=== PATIENT | male | born 1960 | race Caucasian/White ===

== ENCOUNTER 2017-07-13 19:30 | Inpatient (IN) | payer OTHER ==
[~2017-07-13] VITALS: Ht 172.7 cm; Wt 88.0 kg
[~2017-07-13 19:30] MED LIST: LEVAQUIN750 MG PO; PERCOCET 325 MG1 TA2 PO
--- NOTE | 2017-07-13 19:56 | ED NEURO DEFICIT/STROKE ---
History of Present Illness General Chief Complaint: General Adult Stated Complaint: PT THINKS HE HAVING A STROKE Source: patient Exam Limitations: no limitations Vital Signs & Intake/Output Vital Signs & Intake/Output Vital Signs Date Time Temp Pulse Resp B/P B/P Pulse O2 O2 Flow FiO2 Mean Ox Delivery Rate 07/13 2033 Room Air 07/13 1940 96.4 70 22 168/93 95 Room Air Allergies Coded Allergies: NO KNOWN ALLERGIES (12/13/14) Reconcile Medications No Known Home Medications Triage Note: PER PT TODAY AT ABOUT 3PM DIFFICULTY SPEAKING PER CO WORKERS, AND FELT WOOZY TONIGHT AT DINNER SAID PT WAS DROPPING FOOD OUT OF MOUTH, ALERT MENTATING WELL SPEECH ?THICK EQUAL HAND GRAPS Triage Nurses Notes Reviewed? yes Onset: Abrupt Duration: hour(s): Timing: recent history Severity: mild New Weakness: right facial Impaired Ability: unable to speak, unable to swallow Baseline: alert, oriented x 3 Associated Symptoms: confusion HPI: 57 yo gentleman in prior good health presents with right facial droop, dysarthria, problems swallowing that began at approximately 2:30pm and lasted 30 or so minutes and self resolved. And then against approximately 5:30pm, had brief episode while eating dinner. "My said to me, 'you don't look so good.... there is food coming out of the right side of your mouth.'" No chest pain, shortness of breath, chills. He is now feeling well. Past History Travel History Traveled to [place] past 21 day No Medical History Any Pertinent Medical History? see below for history Neurological: NONE EENT: NONE Cardiovascular: hypertension Respiratory: COPD Gastrointestinal: GERD Psychiatric: NONE Endocrine: NONE Surgical History Surgical History: none Psychosocial History What is your primary language Turkmen Tobacco Use: Never used Family History Hx Contributory? No Review of Systems Review of Systems Constitutional: Reports: no symptoms. EENTM: Reports: no symptoms. Respiratory: Reports: no symptoms. Cardiovascular: Reports: no symptoms. GI: Reports: no symptoms. Genitourinary: Reports: no symptoms. Musculoskeletal: Reports: no symptoms. Skin: Reports: no symptoms. Neurological/Psychological: Reports: no symptoms. Hematologic/Endocrine: Reports: no symptoms. Immunologic/Allergic: Reports: no symptoms. All Other Systems: Reviewed and Negative Physical Exam Physical Exam General Appearance: well developed/nourished, no apparent distress Head: atraumatic, normal appearance Eyes: Bilateral: normal appearance, PERRL, EOMI. Ears, Nose, Throat: normal ENT inspection, moist mucous membrane Neck: normal inspection, supple, full range of motion Respiratory: normal breath sounds, chest non-tender, no respiratory distress, quiet respiration, lungs clear Cardiovascular: regular rate/rhythm Gastrointestinal: normal bowel sounds, soft, non-tender, no organomegaly Back: normal inspection, normal range of motion Extremities: normal range of motion Psychiatric: awake, alert, oriented x 3 Cranial Nerves: normal hearing, normal speech, PERRL Coordination/Gait: normal finger to nose Motor/Sensory: no motor/sensory deficits Reflexes: 1+: bicep (R), bicep (L), knee (R), knee (L). Core Measures CVA/TIA Diagnosis: No Sepsis Present: No Sepsis Focused Exam Completed? No Progress Differential Diagnosis: Costa's Palsy, intracranial Hem., intracranial mass/tumor , migraine AREVALO, stroke Plan of Care: Orders Procedure Date/time Status Nothing by Mouth 07/14 B Active Saline Lock 07/[address] in observation 07/13 2137 Active Misc Message 07/13 2137 Active ED Holding Orders 07/13 2137 Active Vital Signs 07/13 2137 Active Code Status 07/13 2137 Active Add-on Test (ER Only) 07/13 2036 Active ETHANOL 07/13 1948 Complete TROPONIN LEVEL 07/13 1942 Complete COMPREHENSIVE METABOLIC PANEL 07/13 1942 Complete CBC WITHOUT DIFFERENTIAL 07/13 1942 Complete EKG 07/13 1931 Active Laboratory Tests 07/13/171948: Anion Gap 13, Estimated GFR > 60, BUN/Creatinine Ratio 16.7, Glucose 94, Calcium 9.6, Total Bilirubin 0.6, AST 32, ALT 38, Alkaline Phosphatase 60, Troponin I < 0.01, Total Protein 7.0, Albumin 4.4, Globulin 2.6, Albumin/Globulin Ratio 1.7, Serum Alcohol 116.0 07/13/171942: CBC w Diff NO MAN DIFF REQ, RBC 5.06, MCV 93.2, MCH 31.0, MCHC 33.3, RDW 13.3, MPV 7.8, Gran % 60.5, Lymphocytes % 26.1, Monocytes % 11.3 H, Eosinophils % 1.7 , Basophils % 0.4, Absolute Granulocytes 4.9, Absolute Lymphocytes 2.1, Absolute Monocytes 0.9 H, Absolute Eosinophils 0.1, Absolute Basophils 0 Diagnostic Imaging: Viewed by Me: CT Scan. Discussed w/RAD: CT Scan. Radiology Impression: PATIENT: ARMANDO DUDLEY PRESENT AGE: 57 PATIENT ACCOUNT NO: [id number] : 62 LOCATION: [facility] ORDERING PHYSICIAN: Ahsan Lake MD SERVICE DATE: 07/13/17 EXAM TYPE: CAT - CT HEAD WO IV CONTRAST EXAMINATION: CT HEAD WITHOUT CONTRAST CLINICAL INFORMATION: Right facial droop. COMPARISON: None TECHNIQUE: Contiguous axial imaging was performed from the skull base to vertex without intravenous administration of contrast. DLP: 624.91 mGy-cm FINDINGS: There is no evidence of acute intracranial hemorrhage or territorial infarction. No abnormal mass effect or midline shift is seen. Downing to white matter differentiation is well preserved. No extra-axial fluid collections are identified. The ventricles are normal in size. There is no abnormal attenuation within the brain parenchyma. The osseous structures and soft tissues are normal. The mastoid air cells and visualized portions of the paranasal sinuses are well aerated. IMPRESSION: No acute intracranial pathology. DICTATED BY: Aaron Melendez MD DATE/TIME DICTATED:2009 TICKER MAINTAINER:CANDIS DATE/TIME TRANSCRIBED:07/13/172009 CONFIDENTIAL, DO NOT COPY WITHOUT APPROPRIATE AUTHORIZATION. <Electronically signed in Other Vendor System> SIGNED BY: Aaron Melendez MD 07/13/172013 CXR Impression: no acute abnormality, no infiltrates, normal size heart, normal mediastinum Initial ED EKG: nsr, no acute changes. Departure Departure Disposition: STILL A PATIENT Condition: Stable Clinical Impression Primary Impression: TIA (transient ischemic attack) Referrals: Raffy Rice MD (PCP/Family) Departure Forms: Customer Survey General Discharge Information Prescriptions: Current Visit Scripts No Known Home Medications Comments 07/13/17, 21:10.... discussed with dr. lambert... pt to be placed in obs for likely tia. Observation Note Spoke With: Raffy Rice MD Place Patient In: Non-ED OBS Care Area Rationale for Observation: My rational for observation is as follows . pt with right facial droop x 2 today... c/w tia.. aspirin given... pt merits observation, neuro eval in AM. Critical Care Note Critical Care Note Critical Care Time: 30-74 min
--- NOTE | 2017-07-13 20:14 | CT SCAN REPORT ---
EXAMINATION: CT HEAD WITHOUT CONTRAST CLINICAL INFORMATION: Right facial droop. COMPARISON: None TECHNIQUE: Contiguous axial imaging was performed from the skull base to vertex without intravenous administration of contrast. DLP: 624.91 mGy-cm FINDINGS: There is no evidence of acute intracranial hemorrhage or territorial infarction. No abnormal mass effect or midline shift is seen. Downing to white matter differentiation is well preserved. No extra-axial fluid collections are identified. The ventricles are normal in size. There is no abnormal attenuation within the brain parenchyma. The osseous structures and soft tissues are normal. The mastoid air cells and visualized portions of the paranasal sinuses are well aerated. IMPRESSION: No acute intracranial pathology.
[2017-07-13 20:25] LABS: ABSOLUTE BASOPHIL COUNT 0 /CUMM (0.0-0.2); ABSOLUTE EOSINOPHIL COUNT 0.1 /CUMM (0.0-0.7); ABSOLUTE GRANULOCYTE CT 4.9 /CUMM (1.4-6.5); ABSOLUTE LYMPH COUNT 2.1 /CUMM (1.2-3.4); ABSOLUTE MONOCYTE COUNT 0.9 /CUMM (0.10-0.60); BASOPHIL % 0.4 % (0.0-2.0); EOSINOPHIL % 1.7 % (0-5); GRANULOCYTE % 60.5 % (42.2-75.2); HEMATOCRIT 47.2 % (42-52); MEAN CORPUSCULAR HGB CONC 33.3 G/DL (33.0-37.0); MEAN CORPUSCULAR VOLUME 93.2 FL (80.0-94.0); MEAN PLATELET VOLUME 7.8 FL (7.4-10.4); PLATELET COUNT 269 /CUMM (130-400); RBC DISTRIBUTION WIDTH 13.3 % (11.5-14.5); RED BLOOD CELL CT 5.06 /CUMM (4.70-6.10); WHITE BLOOD CELL COUNT 8.1 /CUMM (4.8-10.8)
--- NOTE | 2017-07-13 20:37 | RADIOLOGY REPORT ---
EXAMINATION: XR PORTABLE CHEST CLINICAL INFORMATION: CVA. COMPARISON: Chest x-ray 06/11/2015 TECHNIQUE: Portable frontal view of the chest was obtained. 8:02 PM FINDINGS: No significant abnormality is noted involving the heart, lungs, mediastinum, bony thorax or soft tissues. IMPRESSION: Unremarkable examination.
--- NOTE | 2017-07-13 22:15 | History & Physical ---
John Briseno MD 07/13/17 8744: General Information and HPI MD Statement: I have seen and personally examined ARMANDO DUDLEY and documented this H&P. The patient is a 57 year old M who presented with a patient stated chief complaint of [R sided facial droop]. Source of Information: patient Exam Limitations: no limitations History of Present Illness: Patient is a 57-year-old male with a [id number] smoking history who presented to the ED complaining of slurred speech and right-sided facial droop. Patient states that approximately 1430 on the day of admission he experienced slurred speech, lightheadedness and right hand weakness while he was working. He also noted some transient tingling of his face bilaterally but no numbness. His coworker said that he cannot understand him the patient did not realize that he was having difficulty speaking. At this time he also noted lightheadedness, but did not loss of consciousness. After this episode he felt fatigued when he came home from work. While eating dinner later in the evening he noted food falling out of his mouth and a friend of his noted facial asymmetry while he was smiling. It was at this point the he decided to come to the ED. He denied any chest pain, shortness of breath, palpitations, visual changes, numbness or tingling of his extremities. During the examination he reports that his symptoms had resolved and he feels back to baseline. Allergies/Medications Allergies: Coded Allergies: NO KNOWN ALLERGIES (12/13/14) Home Med list Aspirin (Aspirin*) 81 MG TAB.CHEW 1 TAB PO DAILY STROKE Atorvastatin Calcium (Lipitor) 40 MG TABLET 1 TAB PO DAILY STROKE Nicotine (Nicotine Patch) 21 MG/24 HOUR PATCH.TD24 1 PAT TOP DAILY smoking cessation Nicotine (Nicotine Patch) 14 MG/24 HOUR PATCH.TD24 1 PAT TOP DAILY smoking cessation Start taking these daily after finishing the 21 MG patch Nicotine (Nicotine Patch) 7 MG/24 HOUR PATCH.TD24 1 PAT TD DAILY smoking cessation Past History Travel History Traveled to [place] past 21 day No Medical History Neurological: NONE EENT: NONE Gastrointestinal: GERD Psychiatric: NONE Endocrine: NONE Surgical History Surgical History: none Past Family/Social History Family History Relations & Conditions if any MOTHER FH: CVA (cerebrovascular accident) FH: HTN (hypertension) Psychosocial History Where do you live? Home Who Do You Live With? fiance Primary Language: Yakut Smoking Status: Current Everyday Smoker ETOH Use: heavy use (daily 1-2 drinks) Illicit Drug Use: denies illicit drug use Functional Ability ADLs Independent: dressing, eating, toileting, bathing. Ambulation: independent IADLs Independent: shopping, housework, finances, food prep, telephone, transportation , medication admin. Review of Systems Review of Systems Constitutional: Denies: chills, diaphoresis, fever, malaise, weakness. EENTM: Denies: blurred vision, double vision, visual changes, hearing changes. Cardiovascular: Reports: chest pain (reports occasional chest pain). Denies: edema, orthopena. Respiratory: Denies: cough, hemoptysis, orthopnea, short of breath. GI: Denies: abdominal pain, bloating, constipation, diarrhea, nausea, vomiting. Genitourinary: Denies: dysuria, frequency, hematuria. Skin: Denies: rash. Neurological/Psychological: Reports: tingling (face bilaterally), weakness (R hand). Denies: confusion, headache, numbness. Exam & Diagnostic Data Last 24 Hrs of Vital Signs/I&O Vital Signs Date Time Temp Pulse Resp B/P B/P Pulse O2 O2 Flow FiO2 Mean Ox Delivery Rate 07/13 2321 98.8 79 20 150/90 94 Room Air 07/13 2320 Room Air 07/13 2236 98.4 75 16 136/80 95 Room Air 07/13 2033 Room Air 07/13 194 96.4 70 22 168/93 95 Room Air Physical Exam General Appearance Alert, Oriented X3, Cooperative, No Acute Distress Skin Temp/Moisture Exam: Warm/Dry Sepsis Skin Exam (color): Normal for Ethnicity HEENT Atraumatic, PERRLA, EOMI, Mucous Membr. moist/pink Neck Supple, No JVD, +2 Carotid Pulse wo Bruit Cardiovascular Regular Rate, Normal S1, Normal S2 Lungs diminished breath sounds Abdomen Normal Bowel Sounds, Soft, No Tenderness Neurological Normal Speech (pt states speech is at baselin), Strength at 5/5 X4 Ext, Normal Tone, Sensation Intact, Cranial Nerves 3-12 NL, no dysmetria on exam , able to perfrom rapid alternating movements and heel-carlin test without difficulty Extremities No Clubbing, No Cyanosis, No Edema Vascular Normal Pulses, Pulses Symmetrical Last 24 Hrs of Labs/Kendell: Laboratory Tests 07/13/171948: Anion Gap 13, Estimated GFR > 60, BUN/Creatinine Ratio 16.7, Glucose 94, Calcium 9.6, Total Bilirubin 0.6, AST 32, ALT 38, Alkaline Phosphatase 60, Troponin I < 0.01, Total Protein 7.0, Albumin 4.4, Globulin 2.6, Albumin/Globulin Ratio 1.7, Serum Alcohol 116.0 07/13/171942: CBC w Diff NO MAN DIFF REQ, RBC 5.06, MCV 93.2, MCH 31.0, MCHC 33.3, RDW 13.3, MPV 7.8, Gran % 60.5, Lymphocytes % 26.1, Monocytes % 11.3 H, Eosinophils % 1.7 , Basophils % 0.4, Absolute Granulocytes 4.9, Absolute Lymphocytes 2.1, Absolute Monocytes 0.9 H, Absolute Eosinophils 0.1, Absolute Basophils 0 Diagnostic Data EKG Results NSR, HR 72, QTc 409 CXR Results no acute pathology Other Results Head CT w/o contrast No acute intracranial pathology. Assessment/Plan Assessment: Patient is a 57-year-old smoker with no significant past medical history who presented after an episode of dysarthria, right hand weakness, and lightheadedness with resolution of a subsequent episode of right-sided facial droop. His last known well time was 1430 day of admission. His symptoms have currently resolved neurological exam showed no focal neurological deficits. CT head without contrast showed no focal neurological deficits; no carotid bruits were heard on exam. NIH stroke scale 0, patient passed bedside swallow eval. Problem list #TIA vs CVA; will need MRI head in the a.m. to assess for signs of ischemia #Nicotine dependence Plan -Place in observation on telemetry floor -Continuous telemetry monitoring -MRI head in a.m. -Neurology consult was placed with on-call neurologist Dr. Genao who was also called from the ED -Begin aspirin and statin -Carotid Doppler ultrasound -Nothing by mouth pending formal swallow eval, of note patient passed bedside swallow eval on exam -DVT prophylaxis: Lovenox, ALPS -Status: Full code As Ranked By This Provider Problem List: 1. TIA (transient ischemic attack) Core Measures/Misc (02/04) Acute Coronary Syndrome ACS Diagnosis: No Congestive Heart Failure Congestive Heart Failure Diagnosis No Cerebrovascular Accident CVA/TIA Diagnosis: Yes NIH Stroke Scale: Total 0 VTE (View Protocol) VTE Risk Factors Smoker No Mechanical VTE Prophylaxis d/t N/A MechProphylax Ordered No VTE Pharm Prophylaxis d/t NA PharmProphylax ordered Sepsis (View protocol) Sepsis Present: No Dandre Yeager 07/14/17 0042: Resident Review Statement Resident Statement: examined this patient, discussed with product management intern, agreed with product management intern, reviewed images Other Findings: is a 57 yo man with no significant medical history presented to ED with fascial numbness, slurred speech and drooling while eating his lunch today, and weakness on the right arm, he also report dizziness with no LOC. He denies chest pain, palpitation, headache, no vision changes, never has similar symptoms before. He denies any other medical history and no medications at home. He is under observation at telemetry floor, will order MRI head, B/L carotid US, neurology consult, he received high dose ASA at ED, will continue with ASA 81 mg daily, NIHA scale, statin, PT/OT, official swallow eval at am, NPO. Full code DVT ppx SC Lovenox
[2017-07-13 23:22] VITALS: BP 150/90
[2017-07-14 06:49] VITALS: BP 150/100
[2017-07-14 08:07] VITALS: BP 128/62
--- NOTE | 2017-07-14 08:22 | Event Note ---
Event Note Event Note: Patient passed bedside swallow evaluation. There was no coughing and choking episode and lungs were clear. We will start him on heart healthy diet.
[2017-07-14 08:24] LABS: ABSOLUTE BASOPHIL COUNT 0 /CUMM (0.0-0.2); ABSOLUTE EOSINOPHIL COUNT 0.2 /CUMM (0.0-0.7); ABSOLUTE GRANULOCYTE CT 3.6 /CUMM (1.4-6.5); ABSOLUTE LYMPH COUNT 1.5 /CUMM (1.2-3.4); ABSOLUTE MONOCYTE COUNT 0.7 /CUMM (0.10-0.60); BASOPHIL % 0.5 % (0.0-2.0); EOSINOPHIL % 3.2 % (0-5); GRANULOCYTE % 60.1 % (42.2-75.2); HEMATOCRIT 44.3 % (42-52); MEAN CORPUSCULAR HGB 31.1 PG (27.0-31.0); MEAN CORPUSCULAR HGB CONC 33.6 G/DL (33.0-37.0); MEAN CORPUSCULAR VOLUME 92.6 FL (80.0-94.0); MEAN PLATELET VOLUME 8.1 FL (7.4-10.4); PLATELET COUNT 213 /CUMM (130-400); RBC DISTRIBUTION WIDTH 13.7 % (11.5-14.5); RED BLOOD CELL CT 4.78 /CUMM (4.70-6.10); WHITE BLOOD CELL COUNT 6.1 /CUMM (4.8-10.8)
[2017-07-14 14:16] VITALS: BP 160/100
[2017-07-14 14:24] VITALS: BP 144/80
--- NOTE | 2017-07-14 15:47 | MRI REPORT ---
EXAMINATION: MR BRAIN WITHOUT CONTRAST CLINICAL INFORMATION: Facial droop. Right arm weakness. COMPARISON: Head CT 07/13/2017. TECHNIQUE: Multiplanar, multisequence imaging of the brain was performed without intravenous contrast. \H\ \N\FINDINGS: There is an acute infarct within the right middle cerebral artery territory predominantly involving involving the middle frontal gyri and insula. There is cytotoxic edema and mild effacement of the involved sulci but no regional mass effect, midline shift, or hemorrhage. An additional punctate acute infarct is present within the right paramedian cerebellum within the DIETARY DIRECTOR territory (DWI image 61/72). There are moderate foci of T2 hyperintensity in the bilateral cerebral white matter, which are nonspecific but likely reflect underlying small vessel disease. The ventricles are normal in size and configuration without evidence of hydrocephalus. There is no intracranial mass lesion. There is no extra-axial collection. The major arterial flow voids are preserved at the skull base. There is mild paranasal sinus mucosal thickening. IMPRESSION: 1. Small acute infarct within the MCA territory involving the middle frontal gyri and insula. No significant regional mass effect or hemorrhage. Punctate acute infarct within the right paramedian occipital lobe within the DIETARY DIRECTOR territory. In the setting of acute infarcts in varying vascular territories and embolic etiology is favored. Alternatively and anterior circulation embolus could explain both infarcts in the presence of a -type DIETARY DIRECTOR. 2. Moderate small vessel ischemic changes. This critical result was discussed with Dr. Beaulieu on 07/14/2017 3:42 PM, and it was ascertained that the content and urgency of the report was understood at the time of direct communication.
--- NOTE | 2017-07-14 15:48 | ULTRASOUND REPORT ---
EXAMINATION: DUPLEX BILATERAL CAROTID ULTRASOUND CLINICAL INFORMATION: There is a 57-year-old male with history of TIA, aphasia, smoking, syncope, carotid artery disease. COMPARISON: None. TECHNIQUE: Real-time ultrasound and Doppler techniques (integrating B-mode 2D vascular images, Doppler spectral analysis and color flow Doppler imaging) were utilized to interrogate the extracranial carotid and vertebral arteries bilaterally. The degree of stenosis determined by criteria similar to NASCET. FINDINGS: Right side: 1. Minimal amount of heterogeneous plaque is seen in the ECA/ICA region. 2. The common carotid artery velocity is 45 cm/s. 3. The internal carotid artery velocities are 79 cm/s systolic and 26 cm/s diastolic. 4. The external carotid artery velocity is 154 cm/s. There is a hemodynamically significant stenosis within the external carotid artery. Left side: 1. Minimal amount of heterogeneous plaque is seen in the ECA/ICA region. 2. The common carotid artery velocity is 62 cm/s. 3. The internal carotid artery velocities are 64 cm/s systolic and 22 cm/s diastolic. 4. The external carotid artery velocity is 98 cm/s. There is no hemodynamically significant stenosis within the external carotid artery. ADDITIONAL FINDINGS: 1. The vertebral arteries show antegrade flow. IMPRESSION: 1. RIGHT: Minimal, nonhemodynamically significant stenosis of the proximal right internal carotid artery corresponding to a 0-49% stenosis by velocity criteria. 2. LEFT: Minimal, nonhemodynamically significant stenosis of the proximal left internal carotid artery corresponding to a 0-49% stenosis by velocity criteria.
--- NOTE | 2017-07-14 17:14 | Admission Certification ---
Admission Certification Certification Statement - As attending physician, I certify that at the time of - admission, based on clinical presentation, severity of - symptoms, need for further diagnostic testing and - therapeutic interventions, and risk of adverse outcomes - without in-hospital treatment, in my clinical assessment, - this patient requires an acute hospital stay for a minimum - of two nights or longer. I have also considered psychsocial - factors such as support system, advanced age, financial - issues, cognitive issues, and failed out-patient treatments, - past re-admission history, safety of patient, and lack of - compliance as applicable. Specific rationale supporting this admission is: Facial droop. Expressive aphasia resolved. Abnormal MRI of the head
--- NOTE | 2017-07-14 17:21 | PN- Att Addend ---
Attending Addendum Attending Brief Note 57-year-old white male was in his usual state of health till approximately 3 PM on Sunday when his coworkers noticed some difficulty expressing himself some right facial droop lasted maybe up to 30 minutes again later on around dinnertime noted that he wasn't acting right. Had the same episode was dropping some food. To the emergency room, was evaluated had a CAT scan of the head which showed no acute abnormalities was given aspirin and a neurology consult was requested. Patient was kept originally on observation. This morning she has no symptoms, blood pressures little bit elevated at times a carotid Doppler that showed 0-49% stenosis on both sides which is not significant. Later on he had a MRI of the head that showed moderate acute infarct within the MCA territory, middle frontal GYRI and insular. A punctate acute infarct within right paramedian occipital lobe within the BOOKMOBILE CLERK territory embolic etiology is favored .. Again neurology will be consulted the patient needs anticoagulation and or statins added to his treatment. His chest x-ray was negative Patient is not aware of any arrhythmias and on the monitor to have been any. Current Medications Sig/Lien Start time Last Medication Dose Route Stop Time Status Admin Acetaminophen 650 MG Q6P PRN 07/13 2345 AC PO Aspirin 81 MG DAILY 07/14 1000 AC 07/14 PO 0829 Aspirin 0 .STK-MED ONE 07/13 2048 DC PO Aspirin 325 MG ONCE ONE 07/13 2044 DC 07/13 PO 07/13 Atorvastatin Calcium 40 MG 1700 07/14 1700 AC 07/14 PO 1633 Enoxaparin Sodium 40 MG DAILY 07/14 1000 AC 07/14 SC 0831 Nicotine 21 MG DAILY 07/14 1500 AC 07/14 TOP 1633 Laboratory Tests 07/14/17 0640: Anion Gap 10, Estimated GFR > 60, BUN/Creatinine Ratio 18.8, Triglycerides 80, Cholesterol 231 H, LDL Cholesterol, Calc 151 H, HDL Cholesterol 64 H, Cholesterol/HDL Ratio 4, CBC w Diff NO MAN DIFF REQ, RBC 4.78, MCV 92.6, MCH 31.1 H, MCHC 33.6, RDW 13.7, MPV 8.1, Gran % 60.1, Lymphocytes % 24.5, Monocytes % 11.7 H, Eosinophils % 3.2, Basophils % 0.5, Absolute Granulocytes 3.6, Absolute Lymphocytes 1.5, Absolute Monocytes 0.7 H, Absolute Eosinophils 0.2, Absolute Basophils 0 07/13/171948: Anion Gap 13, Estimated GFR > 60, BUN/Creatinine Ratio 16.7, Glucose 94, Calcium 9.6, Total Bilirubin 0.6, AST 32, ALT 38, Alkaline Phosphatase 60, Troponin I < 0.01, Total Protein 7.0, Albumin 4.4, Globulin 2.6, Albumin/Globulin Ratio 1.7, Serum Alcohol 116.0 07/13/171942: CBC w Diff NO MAN DIFF REQ, RBC 5.06, MCV 93.2, MCH 31.0, MCHC 33.3, RDW 13.3, MPV 7.8, Gran % 60.5, Lymphocytes % 26.1, Monocytes % 11.3 H, Eosinophils % 1.7 , Basophils % 0.4, Absolute Granulocytes 4.9, Absolute Lymphocytes 2.1, Absolute Monocytes 0.9 H, Absolute Eosinophils 0.1, Absolute Basophils 0 Vital Signs Date Time Temp Pulse Resp B/P B/P Pulse O2 O2 Flow FiO2 Mean Ox Delivery Rate 07/14 1424 144/80 07/14 1416 98.4 60 20 160/100 96 Room Air 07/14 0807 128/62 07/14 0649 98.8 68 20 150/100 95 Room Air 07/13 2321 98.8 79 20 150/90 94 Room Air 07/13 2320 Room Air 07/13 2236 98.4 75 16 136/80 95 Room Air 07/13 2033 Room Air 07/13 1940 96.4 70 22 168/93 95 Room Air
[2017-07-14 21:47] VITALS: BP 142/86
[2017-07-15 06:43] VITALS: BP 160/94
--- NOTE | 2017-07-15 08:35 | PN- Housestaff ---
Subjective Follow-up For: Right-sided facial droop Complaints: no complaints Tele-Events Since Last Visit: Sinus bradycardia and sinus rhythm. Heart rate 57 to61 bpm. No events. Subjective: Patient has no complaints this morning. He states that he has no facial droop or slurring of speech and this is also confirmed by his . He denies headaches, blurring of vision, abnormal sensation, weakness or numbness of his body or any extremity. He denies chest pain, palpitations, shortness of breath. He denies nausea vomiting or abdominal pain. He denies dysuria or hematuria. Review of Systems Constitutional: Reports: see HPI. Objective Last 24 Hrs of Vital Signs/I&O Vital Signs Date Time Temp Pulse Resp B/P B/P Pulse O2 O2 Flow FiO2 Mean Ox Delivery Rate 07/15 0643 98.1 78 12 160/94 95 Room Air 07/14 2147 98.6 58 18 142/86 95 07/14 1424 144/80 07/14 1416 98.4 60 20 160/100 96 Room Air Intake & Output 07/15 1600 07/15 0800 07/15 0000 Intake Total 350 550 Output Total Balance 350 550 Intake, Oral 350 550 Patient 194 lb Weight Weight Reported by Patient Measurement Method Physical Exam General Appearance: Alert, Oriented X3, Cooperative, No Acute Distress Skin: No Rashes Skin Temp/Moisture Exam: Warm/Dry Sepsis Skin Exam (color): Normal for Ethnicity HEENT: Atraumatic, PERRLA, EOMI, Mucous Membr. moist/pink Neck: Supple, No JVD, No thryomegaly Lymphatic: Cervical nl Cardiovascular: Regular Rate, Normal S1, Normal S2, No Murmurs Lungs: Clear to Auscultation, Normal Air Movement Abdomen: Normal Bowel Sounds, Soft, No Tenderness, No Hepatospenomegaly, No Masses Neurological: Normal Speech, Strength at 5/5 X4 Ext, Normal Tone, Cranial Nerves 3-12 NL Extremities: No Clubbing, No Cyanosis, No Edema, Normal Pulses, No Tenderness/ Swelling Vascular: Normal Pulses, Pulses Symmetrical Current Medications: Current Medications Sig/Lien Start time Last Medication Dose Route Stop Time Status Admin Acetaminophen 650 MG Q6P PRN 07/13 2345 AC PO Aspirin 81 MG DAILY 07/14 1000 AC 07/15 PO 0948 Atorvastatin Calcium 40 MG 1700 07/14 1700 AC 07/14 PO 1633 Enoxaparin Sodium 40 MG DAILY 07/14 1000 AC 07/15 CO 0948 Nicotine 21 MG DAILY 07/14 1500 AC 07/15 [facility] 0948 Assessment/Plan Assessment: Patient is a 57-year-old smoker with no significant past medical history who presented after an episode of dysarthria, right hand weakness, and lightheadedness with resolution of a subsequent episode of right-sided facial droop. His last known well time was 1430 day of admission. His symptoms have currently resolved neurological exam showed no focal neurological deficits. CT head without contrast showed no focal neurological deficits; no carotid bruits were heard on exam. NIH stroke scale 0, patient passed bedside swallow eval. Problem list 1. Right MCA CVA 2. Hypertension 3. Smoking/Nicotine dependence Plan 1. Right MCA CVA * Continuous telemetry monitoring * Awaiting Neurology and cardiology consultation * Continue aspirin and statin * Allow permissive hypertension * Follow-up echocardiogram 2. Hypertension * Allow permissive hypertension for now * Blood pressure is 160/94 mmHg 3. Smoking/Nicotine dependence * Patient was counseled about smoking cessation agreed to quit * Continue nicotine patch and prescribe nicotine patch on discharge -DVT prophylaxis: Lovenox, ALPS -Status: Full code Problem List: 1. CVA (cerebral vascular accident) Pain Ratin Pain Location: None Pain Goal: Remain pain free Pain Plan: Tylenol when necessary Tomorrow's Labs & Rationales: None needed
[2017-07-15 12:00] VITALS: BP 140/92
[2017-07-15 14:47] VITALS: BP 142/82
--- NOTE | 2017-07-15 14:49 | Cons- Cardiology ---
General Information and HPI Consulting Request Date of Consult: 07/15/17 Requested By: Raffy Rice MD Reason for Consult: Possible embolic stroke Source of Information: patient, family Exam Limitations: no limitations History of Present Illness: The patient is a 57-year-old male who is followed by Dr. Rice as his primary care physician. The patient is admitted to the hospital via the emergency room with complaints of slurred speech and right-sided facial droop. The patient notes that at approximately 2:30 PM on the day of admission, he experienced speech slurring with lightheadedness and right hand weakness. Some transient facial tingling was also noted. His coworkers noted the inability to understand what he was saying. Later in the evening, the patient also noticed difficulty eating. At that point he came to the emergency room. Head CT and MRI showed evidence of a small acute infarct in the MCA territory involving the middle frontal gyrus and insula. There was also a punctate acute infarct in the right paramedian occipital lobe within the CLINICAL STAFF PHARMACIST territory. The patient was minute the hospital for treatment and further evaluation. He denies any known history of cardiac issues or symptoms. He does note that his mother has had a stroke at the age of 59 and he also has a brother with antiphospholipid antibody syndrome and history of pulmonary emboli. Allergies/Medications Allergies: Coded Allergies: NO KNOWN ALLERGIES (12/13/14) Home Med List: No Known Home Medications Current Medications: Current Medications Sig/Lien Start time Last Medication Dose Route Stop Time Status Admin Acetaminophen 650 MG Q6P PRN 07/13 2345 AC PO Aspirin 81 MG DAILY 07/14 1000 AC 07/15 PO 0948 Atorvastatin Calcium 40 MG 1700 07/14 1700 AC 07/14 PO 1633 Enoxaparin Sodium 40 MG DAILY 07/14 1000 AC 07/15 SC 0948 Nicotine 21 MG DAILY 07/14 1500 AC 07/15 TOP 0948 Past History Travel History Traveled to [place] past 21 day No Medical History Blood Transfusion Hx: No Neurological: NONE EENT: NONE Gastrointestinal: GERD Psychiatric: NONE Endocrine: NONE Surgical History Surgical History: 1 Family History Relations & Conditions If Any: MOTHER FH: CVA (cerebrovascular accident) FH: HTN (hypertension) Psychosocial History Where Do You Live? Home Who Do You Live With? fiance Services at Home: None Primary Language: Russian Smoking Status: Current Everyday Smoker ETOH Use: heavy use (daily 1-2 drinks) Illicit Drug Use: denies illicit drug use Functional Ability ADLs Independent: dressing, eating, toileting, bathing. Ambulation: independent IADLs Independent: shopping, housework, finances, food prep, telephone, transportation , medication admin. Exam & Diagnostic Data Vital Signs and I&O Vital Signs Date Time Temp Pulse Resp B/P B/P Pulse O2 O2 Flow FiO2 Mean Ox Delivery Rate 07/15 1447 98.4 68 16 142/82 94 Room Air 07/15 1200 79 140/92 07/15 0643 98.1 78 12 160/94 95 Room Air 07/14 2147 98.6 58 18 142/86 95 Intake & Output 07/15 1600 07/15 0800 07/15 0000 07/14 1600 07/14 0807/14 0000 Intake Total 550 350 550 180 Output Total 400 Balance 550 350 550 -400 180 Intake, Oral 550 350 550 180 Output, Urine 400 Patient 194 lb 194 lb Weight Weight Reported by Patient Measurement Method Physical Exam: General Appearance Alert, Oriented X3, Cooperative, No Acute Distress Skin Temp/Moisture Exam: Warm/Dry HEENT Atraumatic, PERRLA, EOMI, Mucous Membr. moist/pink Neck Supple, No JVD, +2 Carotid Pulse wo Bruit Cardiovascular Regular Rate, Normal S1, Normal S2, 1/6 systolic murmur left lower sternal border Lungs diminished breath sounds Abdomen Normal Bowel Sounds, Soft, No Tenderness Neurological Normal Speech (pt states speech is at baselin), Strength at 5/5 X4 Ext, Normal Tone, Sensation Intact, Cranial Nerves 3-12 NL, no dysmetria on exam , able to perfrom rapid alternating movements and heel-carlin test without difficulty Extremities No Clubbing, No Cyanosis, No Edema Vascular Normal Pulses, Pulses Symmetrical Labs/Kendell Results: Laboratory Tests 07/14 07/13 0640 1949 Chemistry Sodium (137 - 145 mmol/L) 139 142 Potassium (3.5 - 5.1 mmol/L) 4.5 4.0 Chloride (98 - 107 mmol/L) 105 103 Carbon Dioxide (22 - 30 mmol/L) 24 26 Anion Gap (5 - 16) 10 13 BUN (9 - 20 mg/dL) 15 15 Creatinine (0.7 - 1.2 mg/dL) 0.8 0.9 Estimated GFR (>60 ml/min) > 60 > 60 BUN/Creatinine Ratio (7 - 25 %) 18.8 16.7 Glucose (65 - 99 mg/dL) 94 Calcium (8.4 - 10.2 mg/dL) 9.6 Total Bilirubin (0.2 - 1.3 mg/dL) 0.6 AST (17 - 59 U/L) 32 ALT (21 - 72 U/L) 38 Alkaline Phosphatase (< 127 U/L) 60 Troponin I (<0.11 ng/ml) < 0.01 Total Protein (6.3 - 8.2 g/dL) 7.0 Albumin (3.5 - 5.0 g/dL) 4.4 Globulin (1.9 - 4.2 gm/dL) 2.6 Albumin/Globulin Ratio (1.1 - 2.2 %) 1.7 Triglycerides (<150 mg/dL) 80 Cholesterol (< 200 MG/DL) 231 H LDL Cholesterol, Calc (65 - 129 mg/dL) 151 H HDL Cholesterol (40 - 60 mg/dL) 64 H Cholesterol/HDL Ratio (0.00 - 4.88 %) 4 Hematology CBC w Diff NO MAN DIFF REQ WBC (4.8 - 10.8 /CUMM) 6.1 RBC (4.70 - 6.10 /CUMM) 4.78 Hgb (14.0 - 18.0 G/DL) 14.9 Hct (42 - 52 %) 44.3 MCV (80.0 - 94.0 FL) 92.6 MCH (27.0 - 31.0 PG) 31.1 H MCHC (33.0 - 37.0 G/DL) 33.6 RDW (11.5 - 14.5 %) 13.7 Plt Count (130 - 400 /CUMM) 213 MPV (7.4 - 10.4 FL) 8.1 Gran % (42.2 - 75.2 %) 60.1 Lymphocytes % (20.5 - 51.1 %) 24.5 Monocytes % (1.7 - 9.3 %) 11.7 H Eosinophils % (0 - 5 %) 3.2 Basophils % (0.0 - 2.0 %) 0.5 Absolute Granulocytes (1.4 - 6.5 /CUMM) 3.6 Absolute Lymphocytes (1.2 - 3.4 /CUMM) 1.5 Absolute Monocytes (0.10 - 0.60 /CUMM) 0.7 H Absolute Eosinophils (0.0 - 0.7 /CUMM) 0.2 Absolute Basophils (0.0 - 0.2 /CUMM) 0 Toxicology Serum Alcohol (<10 MG/DL) 116.0 07/13 1942 Hematology CBC w Diff NO MAN DIFF REQ WBC (4.8 - 10.8 /CUMM) 8.1 RBC (4.70 - 6.10 /CUMM) 5.06 Hgb (14.0 - 18.0 G/DL) 15.7 Hct (42 - 52 %) 47.2 MCV (80.0 - 94.0 FL) 93.2 MCH (27.0 - 31.0 PG) 31.0 MCHC (33.0 - 37.0 G/DL) 33.3 RDW (11.5 - 14.5 %) 13.3 Plt Count (130 - 400 /CUMM) 269 MPV (7.4 - 10.4 FL) 7.8 Gran % (42.2 - 75.2 %) 60.5 Lymphocytes % (20.5 - 51.1 %) 26.1 Monocytes % (1.7 - 9.3 %) 11.3 H Eosinophils % (0 - 5 %) 1.7 Basophils % (0.0 - 2.0 %) 0.4 Absolute Granulocytes (1.4 - 6.5 /CUMM) 4.9 Absolute Lymphocytes (1.2 - 3.4 /CUMM) 2.1 Absolute Monocytes (0.10 - 0.60 /CUMM) 0.9 H Absolute Eosinophils (0.0 - 0.7 /CUMM) 0.1 Absolute Basophils (0.0 - 0.2 /CUMM) 0 Diagnostic Data EKG Results Normal sinus rhythm with no significant abnormalities CXR Results FINDINGS: No significant abnormality is noted involving the heart, lungs, mediastinum, bony thorax or soft tissues. IMPRESSION: Unremarkable examination. Other Results Carotid Doppler: FINDINGS: Right side: 1. Minimal amount of heterogeneous plaque is seen in the ECA/ICA region. 2. The common carotid artery velocity is 45 cm/s. 3. The internal carotid artery velocities are 79 cm/s systolic and 26 cm/s diastolic. 4. The external carotid artery velocity is 154 cm/s. There is a hemodynamically significant stenosis within the external carotid artery. Left side: 1. Minimal amount of heterogeneous plaque is seen in the ECA/ICA region. 2. The common carotid artery velocity is 62 cm/s. 3. The internal carotid artery velocities are 64 cm/s systolic and 22 cm/s diastolic. 4. The external carotid artery velocity is 98 cm/s. There is no hemodynamically significant stenosis within the external carotid artery. ADDITIONAL FINDINGS: 1. The vertebral arteries show antegrade flow. IMPRESSION: 1. RIGHT: Minimal, nonhemodynamically significant stenosis of the proximal right internal carotid artery corresponding to a 0-49% stenosis by velocity criteria. 2. LEFT: Minimal, nonhemodynamically significant stenosis of the proximal left internal carotid artery corresponding to a 0-49% stenosis by velocity criteria. MRI of the head: IMPRESSION: 1. Small acute infarct within the MCA territory involving the middle frontal gyri and insula. No significant regional mass effect or hemorrhage. Punctate acute infarct within the right paramedian occipital lobe within the CLINICAL STAFF PHARMACIST territory. In the setting of acute infarcts in varying vascular territories and embolic etiology is favored. Alternatively and anterior circulation embolus could explain both infarcts in the presence of a -type CLINICAL STAFF PHARMACIST. 2. Moderate small vessel ischemic changes. This critical result was discussed with Dr. Beaulieu on 07/14/2017 3:42 PM, and it was ascertained that the content and urgency of the report was understood at the time of direct communication. Assessment/Plan Assessment/Plan Assessment: 1. Small MCA stroke; acute; possibly embolic 2. Hypokalemia 3. Mild mitral and tricuspid insufficiency Recommendations: -Continue current statin and antiplatelet regimen -Neurology input pending -Echocardiogram reviewed. Normal left ventricular function with mild mitral and tricuspid insufficiency and no obvious embolic source. The possibility of PFO was not excluded -Discussed in detail with the patient and his . -Outpatient event monitor and GREG -Consider further evaluation as outpatient for antiphospholipid antibody syndrome, etc. -The patient will follow-up with me within one week as an outpatient for the arrangement of the above outpatient testing. -For now, despite the findings on the MRI, there is no clear-cut reason to anticoagulate the patient without the aforementioned further testing. Depending on the above, at some point, an implantable loop monitor might be necessary in this case. Consult Acknowledgment - Thank you for your consult request.
--- NOTE | 2017-07-15 16:03 | PN- Att Addend ---
Attending Addendum Attending Brief Note Patient feeling okay, wants to go home. No arrhythmia events on the monitor in the last 24 hours vital signs are stable no fever. No new changes on physical area appreciate cardiology's input and recommendations which are an outpatient event monitor and a GREG consider antiphospholipid antibody syndrome workup patient has a brother who had a pulmonary emboli and also consider loop monitor to check for arrhythmias. Neurology hasn't seen the patient yet. As soon as this is down patient can go home and continue aspirin and statins. To see me in the office in the next week or 2. 24 TOTALS 07/15 0000 07/14 0000 Intake Total 550 180 Output Total 400 Balance 150 180 Intake, Oral 550 180 Output, Urine 400 Patient 194 lb Weight Current Medications Sig/Lien Start time Last Medication Dose Route Stop Time Status Admin Acetaminophen 650 MG Q6P PRN 07/13 2345 AC PO Aspirin 81 MG DAILY 07/14 1000 AC 07/15 PO 0948 Atorvastatin Calcium 40 MG 1700 07/14 1700 AC 07/14 PO 1633 Enoxaparin Sodium 40 MG DAILY 07/14 1000 AC 07/15 SC 0948 Nicotine 21 MG DAILY 07/14 1500 AC 07/15 TOP 0948 Laboratory Tests 07/14/17 0640: Anion Gap 10, Estimated GFR > 60, BUN/Creatinine Ratio 18.8, Triglycerides 80, Cholesterol 231 H, LDL Cholesterol, Calc 151 H, HDL Cholesterol 64 H, Cholesterol/HDL Ratio 4, CBC w Diff NO MAN DIFF REQ, RBC 4.78, MCV 92.6, MCH 31.1 H, MCHC 33.6, RDW 13.7, MPV 8.1, Gran % 60.1, Lymphocytes % 24.5, Monocytes % 11.7 H, Eosinophils % 3.2, Basophils % 0.5, Absolute Granulocytes 3.6, Absolute Lymphocytes 1.5, Absolute Monocytes 0.7 H, Absolute Eosinophils 0.2, Absolute Basophils 0 07/13/171948: Anion Gap 13, Estimated GFR > 60, BUN/Creatinine Ratio 16.7, Glucose 94, Calcium 9.6, Total Bilirubin 0.6, AST 32, ALT 38, Alkaline Phosphatase 60, Troponin I < 0.01, Total Protein 7.0, Albumin 4.4, Globulin 2.6, Albumin/Globulin Ratio 1.7, Serum Alcohol 116.0 07/13/171942: CBC w Diff NO MAN DIFF REQ, RBC 5.06, MCV 93.2, MCH 31.0, MCHC 33.3, RDW 13.3, MPV 7.8, Gran % 60.5, Lymphocytes % 26.1, Monocytes % 11.3 H, Eosinophils % 1.7 , Basophils % 0.4, Absolute Granulocytes 4.9, Absolute Lymphocytes 2.1, Absolute Monocytes 0.9 H, Absolute Eosinophils 0.1, Absolute Basophils 0 Vital Signs Date Time Temp Pulse Resp B/P B/P Pulse O2 O2 Flow FiO2 Mean Ox Delivery Rate 07/15 1447 98.4 68 16 142/82 94 Room Air 07/15 1200 79 140/92 07/15 0643 98.1 78 12 160/94 95 Room Air 07/14 2147 98.6 58 18 142/86 95
--- NOTE | 2017-07-15 16:35 | Cons- Neurology ---
General Information and HPI Consulting Request Date of Consult: 07/15/17 Requested By: Raffy Rice MD Reason for Consult: Stroke History of Present Illness: The patient is a 57-year-old male with a [id number] smoking history who presented to the ED complaining of slurred speech,right hand weakness and right -sided facial droop at 1430 on the day of admission while he was working. His coworker said that he cannot understand him the patient did not realize that he was having difficulty speaking. At this time he also noted lightheadedness, but did not loss of consciousness. After this episode he felt fatigued when he came home from work. While eating dinner later in the evening he noted food falling out of his mouth and a friend of his noted facial asymmetry while he was smiling. It was at this point the he decided to come to the ED. In ED his symptoms had resolved and he feels back to baseline. Allergies/Medications Allergies: Coded Allergies: NO KNOWN ALLERGIES (12/13/14) Home Med List: No Known Home Medications Current Medications: Current Medications Sig/Lien Start time Last Medication Dose Route Stop Time Status Admin Acetaminophen 650 MG Q6P PRN 07/13 2345 AC PO Aspirin 81 MG DAILY 07/14 1000 AC 07/15 PO 0948 Atorvastatin Calcium 40 MG 1700 07/14 1700 AC 07/14 PO 1633 Enoxaparin Sodium 40 MG DAILY 07/14 1000 AC 07/15 SC 0948 Nicotine 21 MG DAILY 07/14 1500 AC 07/15 TOP 0948 Review of Systems Review of Systems: 10 point ROS was unremarkable Past History Travel History Traveled to [place] past 21 day No Medical History Blood Transfusion Hx: No Neurological: NONE EENT: NONE Gastrointestinal: GERD Psychiatric: NONE Endocrine: NONE Surgical History Surgical History: 1 Family History Relations & Conditions If Any: MOTHER FH: CVA (cerebrovascular accident) FH: HTN (hypertension) Psychosocial History Where Do You Live? Home Who Do You Live With? fiance Services at Home: None Primary Language: Frisian Smoking Status: Current Everyday Smoker ETOH Use: heavy use (daily 1-2 drinks) Illicit Drug Use: denies illicit drug use Functional Ability ADLs Independent: dressing, eating, toileting, bathing. Ambulation: independent IADLs Independent: shopping, housework, finances, food prep, telephone, transportation , medication admin. Exam & Diagnostic Data Vital Signs and I&O Vital Signs Date Time Temp Pulse Resp B/P B/P Pulse O2 O2 Flow FiO2 Mean Ox Delivery Rate 07/15 1447 98.4 68 16 142/82 94 Room Air 07/15 1200 79 140/92 07/15 0643 98.1 78 12 160/94 95 Room Air 07/14 2147 98.6 58 18 142/86 95 Intake & Output 07/15 1600 07/15 0800 07/15 0000 Intake Total 550 350 550 Output Total Balance 550 350 550 Intake, Oral 550 350 550 Patient 87.997 kg Weight Weight Reported by Patient Measurement Method Physical Exam: CN2-12 intact A&Ox4 No drift, 5/5 t/o, no tremor, normal bulk and tone Neg Clyde No clonus Intact sensation Last 48 Hours of Lab Results: Laboratory Tests 07/14 07/13 0640 1949 Chemistry Sodium (137 - 145 mmol/L) 139 142 Potassium (3.5 - 5.1 mmol/L) 4.5 4.0 Chloride (98 - 107 mmol/L) 105 103 Carbon Dioxide (22 - 30 mmol/L) 24 26 Anion Gap (5 - 16) 10 13 BUN (9 - 20 mg/dL) 15 15 Creatinine (0.7 - 1.2 mg/dL) 0.8 0.9 Estimated GFR (>60 ml/min) > 60 > 60 BUN/Creatinine Ratio (7 - 25 %) 18.8 16.7 Glucose (65 - 99 mg/dL) 94 Calcium (8.4 - 10.2 mg/dL) 9.6 Total Bilirubin (0.2 - 1.3 mg/dL) 0.6 AST (17 - 59 U/L) 32 ALT (21 - 72 U/L) 38 Alkaline Phosphatase (< 127 U/L) 60 Troponin I (<0.11 ng/ml) < 0.01 Total Protein (6.3 - 8.2 g/dL) 7.0 Albumin (3.5 - 5.0 g/dL) 4.4 Globulin (1.9 - 4.2 gm/dL) 2.6 Albumin/Globulin Ratio (1.1 - 2.2 %) 1.7 Triglycerides (<150 mg/dL) 80 Cholesterol (< 200 MG/DL) 231 H LDL Cholesterol, Calc (65 - 129 mg/dL) 151 H HDL Cholesterol (40 - 60 mg/dL) 64 H Cholesterol/HDL Ratio (0.00 - 4.88 %) 4 Hematology CBC w Diff NO MAN DIFF REQ WBC (4.8 - 10.8 /CUMM) 6.1 RBC (4.70 - 6.10 /CUMM) 4.78 Hgb (14.0 - 18.0 G/DL) 14.9 Hct (42 - 52 %) 44.3 MCV (80.0 - 94.0 FL) 92.6 MCH (27.0 - 31.0 PG) 31.1 H MCHC (33.0 - 37.0 G/DL) 33.6 RDW (11.5 - 14.5 %) 13.7 Plt Count (130 - 400 /CUMM) 213 MPV (7.4 - 10.4 FL) 8.1 Gran % (42.2 - 75.2 %) 60.1 Lymphocytes % (20.5 - 51.1 %) 24.5 Monocytes % (1.7 - 9.3 %) 11.7 H Eosinophils % (0 - 5 %) 3.2 Basophils % (0.0 - 2.0 %) 0.5 Absolute Granulocytes (1.4 - 6.5 /CUMM) 3.6 Absolute Lymphocytes (1.2 - 3.4 /CUMM) 1.5 Absolute Monocytes (0.10 - 0.60 /CUMM) 0.7 H Absolute Eosinophils (0.0 - 0.7 /CUMM) 0.2 Absolute Basophils (0.0 - 0.2 /CUMM) 0 Toxicology Serum Alcohol (<10 MG/DL) 116.0 07/13 1942 Hematology CBC w Diff NO MAN DIFF REQ WBC (4.8 - 10.8 /CUMM) 8.1 RBC (4.70 - 6.10 /CUMM) 5.06 Hgb (14.0 - 18.0 G/DL) 15.7 Hct (42 - 52 %) 47.2 MCV (80.0 - 94.0 FL) 93.2 MCH (27.0 - 31.0 PG) 31.0 MCHC (33.0 - 37.0 G/DL) 33.3 RDW (11.5 - 14.5 %) 13.3 Plt Count (130 - 400 /CUMM) 269 MPV (7.4 - 10.4 FL) 7.8 Gran % (42.2 - 75.2 %) 60.5 Lymphocytes % (20.5 - 51.1 %) 26.1 Monocytes % (1.7 - 9.3 %) 11.3 H Eosinophils % (0 - 5 %) 1.7 Basophils % (0.0 - 2.0 %) 0.4 Absolute Granulocytes (1.4 - 6.5 /CUMM) 4.9 Absolute Lymphocytes (1.2 - 3.4 /CUMM) 2.1 Absolute Monocytes (0.10 - 0.60 /CUMM) 0.9 H Absolute Eosinophils (0.0 - 0.7 /CUMM) 0.1 Absolute Basophils (0.0 - 0.2 /CUMM) 0 Imaging/Other Studies: MRI brain: 1. Small acute infarct within the MCA territory involving the middle frontal gyri and insula. No significant regional mass effect or hemorrhage. Punctate acute infarct within the right paramedian occipital lobe within the C[employer] B[employer]KE [employer]ING territory. In the setting of acute infarcts in varying vascular territories and embolic etiology is favored. Alternatively and anterior circulation embolus could explain both infarcts in the presence of a -type C[employer]RAKE LINING. 2. Moderate small vessel ischemic changes. CUS: 1. RIGHT: Minimal, nonhemodynamically significant stenosis of the proximal right internal carotid artery corresponding to a 0-49% stenosis by velocity criteria. 2. LEFT: Minimal, nonhemodynamically significant stenosis of the proximal left internal carotid artery corresponding to a 0-49% stenosis by velocity criteria. Assessment/Plan Assessment: The patient is a 57-year-old male with a [id number] smoking history who presented to the ED complaining of slurred speech,right hand weakness and right -sided facial droop at 1430 on the day of admission while he was working. His coworker said that he cannot understand him the patient did not realize that he was having difficulty speaking. At this time he also noted lightheadedness, but did not loss of consciousness. After this episode he felt fatigued when he came home from work. While eating dinner later in the evening he noted food falling out of his mouth and a friend of his noted facial asymmetry while he was smiling. It was at this point the he decided to come to the ED. In ED his symptoms had resolved and he feels back to baseline. Stroke is embolic from the heart vs top of aortic arch vs DVT Obtain CTA neck to COW to look for intracranial stenosis and aortic arch plaque Obtain Echo with bubble. If CTA is negative and Echo shows a PFO then obtain L/E US to look for DVT He needs 4 weeks of cardiac monitoring for possible PAfib Continue ASA/Statin Obtain speech/swallow/pt/ot consult Fasting lipids, b12, tsh, folate We need to exclude common hypercoagulable conditions that can cause stroke in young patient. Obtain BENSON, dsDNA, SSA/B, Anti-Jo1, Lupus Anticoagulant, Cardiolipin, B2 glycoprotein, homocysteine F/u with Dr. Genao. Call his office with questions Recommendations: See above Consult Acknowledgment - Thank you for your consult request.
--- NOTE | 2017-07-15 18:31 | ECHOCARDIOGRAM REPORT ---
ARMANDO DUDLEY Age: 57 : 1960 Gender: M Exam Date: 07/15/2017 08:21 Exam Location: [place] Ht (in): 69 Wt (lb): 194 BSA: 2.09 BP: 160 / 94 Ordering Physician: Lupe Thompson MD Referring Physician: Bradford Hill MD Technologist: Barbara Pardo [facility] Room Number: 189-01 Indications: STROKE Rhythm: Sinus Technical Quality: Fair FINDINGS Left Ventricle Normal global left ventricular size, wall thickness, systolic function with no obvious regional wall motion abnormalities. Normal left ventricular ejection fraction estimated at 60-65%. Right Ventricle Right ventricle not well visualized, grossly normal. Right Atrium Normal right atrial size. Left Atrium Mild left atrial dilatation. Mitral Valve Mitral valve thickened. Mild mitral regurgitation. Aortic Valve Trileaflet aortic valve. Diffuse thickening (sclerosis) of the aortic valve cusps without reduced excursion. No aortic stenosis. No aortic regurgitation. Tricuspid Valve Tricuspid valve not well visualized, grossly normal. Mild tricuspid regurgitation. Pulmonic Valve Pulmonic valve not well visualized, grossly normal. Pericardium No pericardial effusion. Great Vessels Normal size aortic root and proximal ascending aorta. CONCLUSIONS 1. Mild aortic sclerosis is present with no valvular stenosis or insufficiency. 2. Mitral leaflet thickening is present with mild mitral insufficiency and mild left atrial enlargement. 3. There is no pericardial fluid detected. 4. The left ventricular chamber size and systolic function are normal with no resting wall motion abnormalities. 5. Right heart structures are grossly normal. Mild tricuspid insufficiency is present. 6. This study does not exclude the possibility of an atrial level shunt. 7. If clinically indicated, a transesophageal echocardiogram would better exclude potential embolic sources. Bradford Hill M.D. (Electronically Signed) Final Date: 15 July 2017 18:31 MEASUREMENTS (Male / Female) Normal Values 2D ECHO LV Diastolic Diameter PLAX 5.0 cm 4.2 - 5.9 / 3.9 - 5.3 cm LV Systolic Diameter PLAX 3.5 cm 2.1 - 4.0 cm LV Fractional Shortening PLAX 30.0 % 25 - 46 % LV Ejection Fraction 2D Teich 57.0 % IVS Diastolic Thickness 1.2 cm LVPW Diastolic Thickness 1.2 cm LV Relative Wall Thickness 0.5 RV Internal Dim ED PLAX 3.3 cm 1.9 - 3.8 cm LVOT Diameter 1.9 cm Aortic Root Diameter 3.3 cm LA Systolic Diameter LX 3.7 cm 3.0 - 4.0 / 2.7 - 3.8 cm LA Volume 52.0 cm 18 - 58 / 22 - 52 cm Ascending Aorta Diameter 3.1 cm DOPPLER AV Peak Velocity 132.0 cm/s AV Peak Gradient 7.0 mmHg AV Mean Velocity 83.0 cm/s AV Mean Gradient 3.0 mmHg AV Velocity Time Integral 28.2 cm LVOT Peak Velocity 99.3 cm/s LVOT Peak Gradient 3.9 mmHg LVOT Mean Velocity 64.4 cm/s LVOT Mean Gradient 2.0 mmHg LVOT Velocity Time Integral 19.3 cm LVOT Stroke Volume 54.7 cm AV Area Cont Eq vti 1.9 cm AV Area Cont Eq pk 2.1 cm MV Peak Velocity 96.7 cm/s MV Peak Gradient 3.7 mmHg MV Mean Velocity 46.7 cm/s MV Mean Gradient 1.0 mmHg Mitral E Point Velocity 80.5 cm/s Mitral A Point Velocity 67.1 cm/s Mitral E to A Ratio 1.2 MV PHT Velocity 105.0 cm/s MV Deceleration [place] 647.0 cm/s MV Pressure Half Time 48.7 ms MV Area PHT 4.5 cm MV Deceleration Time 232.0 ms PV Peak Velocity 96.5 cm/s PV Peak Gradient 3.7 mmHg PV Mean Velocity 69.9 cm/s PV Mean Gradient 2.0 mmHg PV Velocity Time Integral 23.8 cm LV E' Lateral Velocity 8.0 cm/s Mitral E to LV E' Lateral Ratio 10.1 LV E' Septal Velocity 8.1 cm/s Mitral E to LV E' Septal Ratio 10.0
[2017-07-15 21:09] VITALS: BP 148/100
[2017-07-16 06:54] VITALS: BP 166/80
--- NOTE | 2017-07-16 07:15 | PN- Housestaff ---
Subjective Follow-up For: Stroke Tele-Events Since Last Visit: Sinus bradycardia with junctional beats HR 51-81 Subjective: Patient sitting comfortably in chair, denies any active complaints , states he wants to go home today. Review of Systems Constitutional: Reports: no symptoms. EENTM: Reports: no symptoms. Cardiovascular: Reports: no symptoms. Respiratory: Reports: no symptoms. Gastrointestinal: Reports: no symptoms. Genitourinary: Reports: no symptoms. Musculoskeletal: Reports: no symptoms. Skin: Reports: no symptoms. Neurological/Psychological: Reports: no symptoms. Hematologic/Endocrine: Reports: no symptoms. Immunologic/Allergic: Reports: no symptoms. Objective Last 24 Hrs of Vital Signs/I&O Vital Signs Date Time Temp Pulse Resp B/P B/P Pulse O2 O2 Flow FiO2 Mean Ox Delivery Rate 07/16 0654 98.1 60 16 166/80 95 Room Air 07/15 2109 98.5 60 18 148/100 96 07/15 1447 98.4 68 16 142/82 94 Room Air Intake & Output 07/16 1600 07/16 0800 07/16 0000 Intake Total 100 420 Output Total Balance 100 420 Intake, IV 20 Intake, Oral 100 400 Number 0 Bowel Movements Physical Exam General Appearance: Alert, Oriented X3, Cooperative Skin: No Rashes, No Significant Lesion Cardiovascular: Regular Rate, Normal S1, Normal S2 Lungs: Clear to Auscultation, Normal Air Movement Abdomen: Normal Bowel Sounds, Soft, No Tenderness Neurological: Normal Gait, Normal Speech, Strength at 5/5 X4 Ext, Normal Tone, Sensation Intact, Cranial Nerves 3-12 NL Extremities: No Clubbing, No Cyanosis, No Edema Current Medications: Current Medications Sig/Lien Start time Last Medication Dose Route Stop Time Status Admin Acetaminophen 650 MG Q6P PRN 07/13 2345 DCD PO Aspirin 81 MG DAILY 07/14 1000 DCD 07/16 PO 0813 Atorvastatin Calcium 40 MG 1700 07/14 1700 DCD 07/15 PO 1700 Enoxaparin Sodium 40 MG DAILY 07/14 1000 DCD 07/16 SC 0813 Nicotine 21 MG DAILY 07/14 1500 DCD 07/16 TOP 0812 Last 24 Hrs of Lab/Kendell Results Last 24 Hrs of Labs/Mics: Laboratory Tests 07/16/17 1228: Double Strand DNA Ab Pending, Ref Lab Test Result Pending 07/16/17 1228: Homocysteine Pending, Lupus Anticoagulant Pending, LA PTT Screen Pending, Dil Hardik Viper Venom Pending, SS-A/Ro Antibody Pending, SS-B/La Antibody Pending, Anti-Cardiolipin IgG Ab Pending, Anti-Cardiolipin IgA Ab Pending, Anti- Cardiolipin IgM Ab Pending, Cardiolipin Ab Comment Pending, Ref Lab Test Result Pending 07/16/17 0915: Phosphorus 4.1, Magnesium 2.0 07/16/17 0640: Vitamin B12 486, Folate 8.0, TSH 2.880 07/16/17 0600: BENSON Titer Cancelled, Anti-Nuclear Antibody Cancelled, Ref Lab Test Result Cancelled Assessment/Plan Assessment: Patient is a 57-year-old smoker with no significant past medical history who presented after an episode of dysarthria, right hand weakness, and lightheadedness with resolution of a subsequent episode of right-sided facial droop. A/P; 1. Right MCA stroke; 2. Hypertension - Continue telemetry monitoring - Continue aspirin and statin - Echocardiogram showed ejection fraction of 60-65% with no regional wall motion abnormalities. - Neck CT shows occlusion of an M2 branch of right MCA. - Cardiology recommendations appreciated. - Neurology recommendations appreciated. - Patient will be discharged home today with outpatient follow-up with the assistant nurse manager for an outpatient TTE with bubble study in 30 day event monitor. - Hypercoagulability workup recommended per neurology is pending. DVT prophylaxis; subcutaneous heparin Patient is full code Problem List: 1. CVA (cerebral vascular accident) Pain Ratin Pain Location: None Pain Goal: Remain pain free Pain Plan: None Tomorrow's Labs & Rationales: None
--- NOTE | 2017-07-16 08:33 | CT SCAN REPORT ---
EXAMINATION: CT ANGIOGRAM NECK CLINICAL INFORMATION: Right MCA territory acute infarct. COMPARISON: Carotid ultrasound from 07/14/2017. MRI brain from 07/14/2017. TECHNIQUE: Test bolus sequences followed by administration of 120 mL of Optiray 350 intravenous contrast. Helical imaging was performed in the axial plane of the neck. The data was processed at the phlebotomy technologist workstation for generation of MIP sequences. Three-dimensional volume rendered reformatted images were also generated at an offline 3-D workstation. DLP: 480 mGy-cm FINDINGS: Nonvascular: There are dependent changes in the visualized lungs. No consolidation or pneumothorax. No upper mediastinal adenopathy. No discrete thyroid lesions are evident. The visualized pharyngeal and laryngeal contours appear unremarkable. There is a fair amount of streak artifact, but where visualized the oral cavity is unremarkable. The parotid and submandibular glands are symmetric in attenuation. Level 2 lymph nodes are symmetric and measure up to 1.2 cm in long axis, within normal limits. No cervical adenopathy. The visualized orbits are unremarkable. There is an area of hypoattenuation corresponding to the known evolving infarct in the right MCA territory involving portions of the anterior operculum and insula, with some involvement of the adjacent frontal lobe as well. There is no significant mass effect. The ventricles and sulci appear normal in caliber and configuration. No extra-axial collections. No abnormal enhancement within the imaged intracranial compartment. No acute osseous abnormalities. There is a retention cyst in the inferior right frontal air cell. There are small retention cysts in the maxillary bases. The nasal cavity is clear with a slight sigmoid curvature and a leftward nasal septal spur. No periapical lucencies in the remaining teeth. The temporomandibular joints are unremarkable. The mastoid air cells and middle ear cavities are clear. There is multilevel cervical spondylosis with intervertebral disc height loss, endplate spurring and sclerosis, most notable at C5-C6 and C6-C7 with prominent anterior bridging osteophytes at these levels as well to the left of midline. Moderate canal stenosis is suspected at C6-C7. Varying degrees of foraminal stenosis including high-grade left foraminal stenosis at C2-C3 due to asymmetric left-sided facet hypertrophy. High-grade right foraminal stenosis at C4-C5 and C6-C7. Vascular: The aortic arch is normal in caliber. There is a common origin of the innominate artery and the left common carotid artery. No significant ostial stenosis. There is streak artifact obscuring the right proximal subclavian artery. The left proximal subclavian artery is unremarkable. Streak artifact partially obscures the origin of the right common carotid artery and right vertebral artery. The left vertebral origin is unremarkable. Both visualized common carotid arteries are normal in caliber. There is mild calcification at the left carotid bulb without hemodynamically significant stenosis. There is mild calcification involving the proximal left internal carotid artery without hemodynamically significant stenosis. The remainder of the cervical left internal carotid artery is unremarkable. There is some noncalcified atheroma circumferentially in the proximal right internal carotid artery. There is some luminal irregularity with a small linear, and stable appearing noncalcified plaque projecting into the lumen. There is no hemodynamically significant stenosis. Accounting for streak artifact from dental hardware, the remainder of the vessel is unremarkable. The cervical vertebral arteries are codominant and appear unremarkable in their visualized courses. The distal vertebral arteries, basilar artery, and visualized vertebrobasilar branches appear unremarkable. The distal internal carotid arteries, anterior and middle cerebral arteries, and anterior communicating artery appear unremarkable. The posterior communicating arteries are not well-visualized, normal variant. There is diminished arborization in the anterior right MCA territory in the area of known infarct. There is occlusion of the associated M2 branch (see for example series 2 images 466-468). There is some mild distal reconstitution due to leptomeningeal collateral supply. The visualized dural venous sinuses opacify normally. IMPRESSION: Evolving infarct in the right MCA territory with associated occlusion of an M2 branch of the right MCA. Noncalcified atheroma circumferentially mildly narrowing the proximal right internal carotid artery lumen with some associated luminal irregularity, and an unstable noncalcified plaque projecting into the lumen medially. No hemodynamically significant stenosis is visualized in the cervical vessels.
--- NOTE | 2017-07-16 10:44 | PN- Cardiology ---
Subjective Subjective: The patient is feeling well. His speech and weakness are partially improved. No chest pain. No palpitations. No diaphoresis. No shortness of breath. No atrial fibrillation seen on telemetry. There was a 4 beat run of ventricular tachycardia Objective Vital Signs and I&Os Vital Signs Date Time Temp Pulse Resp B/P B/P Pulse O2 O2 Flow FiO2 Mean Ox Delivery Rate 07/16 0654 98.1 60 16 166/80 95 Room Air 07/15 2109 98.5 60 18 148/100 96 07/15 1447 98.4 68 16 142/82 94 Room Air 07/15 1200 79 140/92 Intake & Output 07/16 1600 07/16 0800 07/16 0000 07/15 1600 07/15 0800 07/15 0000 Intake Total 100 420 550 350 550 Output Total Balance 100 420 550 350 550 Intake, IV 20 Intake, Oral 100 400 550 350 550 Number 0 Bowel Movements Patient 194 lb Weight Weight Reported by Patient Measurement Method Physical Exam: Gen: NAD HEENT: normal Lungs: clear to auscultation, normal resp. effort Heart: RRR, S1, S2, no murmurs Abdomen: Soft, nontender, no masses Extremities: No clubbing, cyanosis, or edema. Neuro: Alert and oriented x 3, cranial nerves intact Current Medications: Current Medications Sig/Lien Start time Last Medication Dose Route Stop Time Status Admin Acetaminophen 650 MG Q6P PRN 07/13 2345 AC PO Aspirin 81 MG DAILY 07/14 1000 AC 07/16 PO 0813 Atorvastatin Calcium 40 MG 1700 07/14 1700 AC 07/15 PO 1700 Enoxaparin Sodium 40 MG DAILY 07/14 1000 AC 07/16 SC 0813 Nicotine 21 MG DAILY 07/14 1500 AC 07/16 TOP 0812 Results Last 48 Hrs of Labs/Mics: Laboratory Tests 07/16/17 0915: Phosphorus 4.1, Magnesium 2.0 07/16/17 0640: Vitamin B12 486, Folate 8.0, TSH 2.880 07/16/17 0600: BENSON Titer Cancelled, Anti-Nuclear Antibody Cancelled, Ref Lab Test Result Cancelled Recent Imaging Studies: Echocardiogram 07/15/17 1. Mild aortic sclerosis is present with no valvular stenosis or insufficiency. 2. Mitral leaflet thickening is present with mild mitral insufficiency and mild left atrial enlargement. 3. There is no pericardial fluid detected. 4. The left ventricular chamber size and systolic function are normal with no resting wall motion abnormalities. 5. Right heart structures are grossly normal. Mild tricuspid insufficiency is present. 6. This study does not exclude the possibility of an atrial level shunt. 7. If clinically indicated, a transesophageal echocardiogram would better exclude potential embolic sources. CTA neck: Evolving infarct in the right MCA territory with associated occlusion of an M2 branch of the right MCA. Noncalcified atheroma circumferentially mildly narrowing the proximal right internal carotid artery lumen with some associated luminal irregularity, and an unstable noncalcified plaque projecting into the lumen medially. No hemodynamically significant stenosis is visualized in the cervical vessels. Carotid Doppler study: 1. RIGHT: Minimal, nonhemodynamically significant stenosis of the proximal right internal carotid artery corresponding to a 0-49% stenosis by velocity criteria. 2. LEFT: Minimal, nonhemodynamically significant stenosis of the proximal left internal carotid artery corresponding to a 0-49% stenosis by velocity criteria. Assessment/Plan Assessment/Plan Assessment: 1. Small MCA stroke; acute; possibly embolic 2. Hypokalemia 3. Mild mitral and tricuspid insufficiency 4. Unstable plaque seen in right internal carotid artery Plan: * Continue aspirin * Continue atorvastatin * Follow up in the office with Dr. Hill within 1 week * GREG with bubble study as outpatient * 30 day event monitor as outpatient * Hypercoagulability workup as recommended by neurology * Follow other neurology recommendation Continue telemetry? Yes
--- NOTE | 2017-07-16 10:54 | PN- Att Addend ---
Attending Addendum Attending Brief Note Patient has no new complaints vital signs are stable blood pressure slightly elevated at times no new changes on physical examination. All the results of the test were noted. Appreciate cardiology and neurology's input will check how many test have to be done in the hospital and if some of the cardiac workup can be done as an outpatient and depending on the results treatment to avoid no emboli Intake & Output 07/16 1600 07/16 0400 07/15 1600 07/15 0400 07/14 1600 07/14 0400 Intake Total 100 420 900 550 180 Output Total 400 Balance 100 420 900 550 -400 180 Intake, IV 20 Intake, Oral 100 400 900 550 180 Number 0 Bowel Movements Output, Urine 400 Patient 194 lb 194 lb Weight Weight Reported by Patient Measurement Method Current Medications Sig/Lien Start time Last Medication Dose Route Stop Time Status Admin Acetaminophen 650 MG Q6P PRN 07/13 2345 AC PO Aspirin 81 MG DAILY 07/14 1000 AC 07/16 PO 0813 Atorvastatin Calcium 40 MG 1700 07/14 1700 AC 07/15 PO 1700 Enoxaparin Sodium 40 MG DAILY 07/14 1000 AC 07/16 SC 0813 Nicotine 21 MG DAILY 07/14 1500 AC 07/16 TOP 0812 Laboratory Tests 07/16/17 0915: Phosphorus 4.1, Magnesium 2.0 07/16/17 0640: Vitamin B12 486, Folate 8.0, TSH 2.880 07/16/17 0600: BENSON Titer Cancelled, Anti-Nuclear Antibody Cancelled, Ref Lab Test Result Cancelled 07/14/17 0640: Anion Gap 10, Estimated GFR > 60, BUN/Creatinine Ratio 18.8, Triglycerides 80, Cholesterol 231 H, LDL Cholesterol, Calc 151 H, HDL Cholesterol 64 H, Cholesterol/HDL Ratio 4, CBC w Diff NO MAN DIFF REQ, RBC 4.78, MCV 92.6, MCH 31.1 H, MCHC 33.6, RDW 13.7, MPV 8.1, Gran % 60.1, Lymphocytes % 24.5, Monocytes % 11.7 H, Eosinophils % 3.2, Basophils % 0.5, Absolute Granulocytes 3.6, Absolute Lymphocytes 1.5, Absolute Monocytes 0.7 H, Absolute Eosinophils 0.2, Absolute Basophils 0 07/13/171948: Anion Gap 13, Estimated GFR > 60, BUN/Creatinine Ratio 16.7, Glucose 94, Calcium 9.6, Total Bilirubin 0.6, AST 32, ALT 38, Alkaline Phosphatase 60, Troponin I < 0.01, Total Protein 7.0, Albumin 4.4, Globulin 2.6, Albumin/Globulin Ratio 1.7, Serum Alcohol 116.0 07/13/171942: CBC w Diff NO MAN DIFF REQ, RBC 5.06, MCV 93.2, MCH 31.0, MCHC 33.3, RDW 13.3, MPV 7.8, Gran % 60.5, Lymphocytes % 26.1, Monocytes % 11.3 H, Eosinophils % 1.7 , Basophils % 0.4, Absolute Granulocytes 4.9, Absolute Lymphocytes 2.1, Absolute Monocytes 0.9 H, Absolute Eosinophils 0.1, Absolute Basophils 0 Vital Signs Date Time Temp Pulse Resp B/P B/P Pulse O2 O2 Flow FiO2 Mean Ox Delivery Rate 07/16 0654 98.1 60 16 166/80 95 Room Air 07/15 2109 98.5 60 18 148/100 96 07/15 1447 98.4 68 16 142/82 94 Room Air 07/15 1200 79 140/92 CT angiogram of the neck showed an evolving infarct in the right MCA territory with associated occlusion of M2 branch of the right MCA. No hemodynamically significant stenosis in the cervical vessels and some plaque seen.
[2017-07-16] MEDS ORDERED: ASPIRIN81 M4 PO (11:47)
[2017-07-16] MEDS ORDERED: LIPITOR40 M1 PO (11:47)
--- NOTE | 2017-07-16 11:53 | Patient Discharge Instructions ---
Discharge Instructions General Discharge Information You were seen/treated for: Stroke Watch for these problems: Please return to the ER case of any headaches, weakness or numbness in any part of the body, facial droop, slurring of speech or any visual changes. Special Instructions: Please follow up with your neurologist within a week after discharge. 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 Diet Continue normal diet: Yes Recommended Diet: Regular no added salt Activity Full Activity/No Limits: Yes Acute Coronary Syndrome Inclusion Criteria At DC or during hospital stay patient has or had the following: ACS DIAGNOSIS No Discharge Core Measures Meds if any: Prescribed or Continued at Discharge Meds if any: NOT Prescribed or Continued at Discharge Congestive Heart Failure Inclusion Criteria At DC or during hospital stay patient has or had the following: CHF DIAGNOSIS No Discharge Core Measures Meds if any: Prescribed or Continued at Discharge Meds if any: NOT Prescribed or Continued at Discharge Cerebrovascular accident Inclusion Criteria At DC or during hospital stay patient has or had the following: CVA/TIA Diagnosis Yes Discharge Core Measures Meds if any: Prescribed or Continued at Discharge Antithrombotic Yes Statin (required if LDL =>70) Yes Anticoagulant No Meds if any: NOT Prescribed or Continued at Discharge Venous thromboembolism Inclusion Criteria VTE Diagnosis No VTE Type NONE VTE Confirmed by (Test) NONE Discharge Core Measures - Per Current guidelines, there needs to be overlap - treatment for the first 5 days of Warfarin therapy. - If discharged on Warfarin prior to 5 days of - overlap therapy, the patient will need to be - assessed for post discharge needs including - *Post discharge parental anticoagulation - *Warfarin and/or parental anticoagulation education - *Follow up date to check INR post discharge At least 5 days overlap therapy as Inpatient No Meds if any: Prescribed or Continued at Discharge Note: Overlap Therapy is Warfarin and Anticoagulant Meds if any: NOT Prescribed or Continued at Discharge
[2017-07-16] MEDS ORDERED: NICOTINE PATCH1 EAC3 TOP (12:15)
[2017-07-16] MEDS ORDERED: NICOTINE PATCH1 EAC2 TOP (12:15)
[2017-07-16] MEDS ORDERED: NICOTINE PATCH1 EAC1 TD (12:15)
== END 2017-07-16 12:37 | DRG 45 ==
LOC: ERH 19:30 → 1NO 21:38 → ERHI 21:38 → ENRESERV 22:30 → ENTRNSPT 22:49 → 1NO 23:11 → CMPTRNSPT 07-14 09:14 → 1NO 07-14 17:13 → ENPENDDIS 07-16 12:05 → 1NO 07-16 12:37
PROVIDERS: Internal Medicine; Student in an Organized Health Care Education/Training Program
DX: I63.441 Cerebral infarction due to embolism of right cerebellar artery (principal); R47.1 Dysarthria and anarthria; F17.210 Nicotine dependence, cigarettes, uncomplicated; I10 Essential (primary) hypertension; E87.6 Hypokalemia; I34.0 Nonrheumatic mitral (valve) insufficiency; I07.1 Rheumatic tricuspid insufficiency; I65.21 Occlusion and stenosis of right carotid artery; Z79.82 Long term (current) use of aspirin; Z82.3 Family history of stroke; Z82.49 Family history of ischemic heart disease and other diseases of the circulatory system; K21.9 Gastro-esophageal reflux disease without esophagitis; R00.1 Bradycardia, unspecified; I47.2 Ventricular tachycardia
CPT/HCPCS: 1NSP; 70551; 85613; 85730; 36592; 71045; 82436; 93005; 93010; 93306; G0480; J1650; J3490